=== PATIENT | male | born 1975 | race Caucasian/White ===

== ENCOUNTER 2019-05-16 17:37 | Emergency (ER) | payer MEDICAID ==
[~2019-05-16] VITALS: Ht 175.3 cm; Wt 80.0 kg
[~2019-05-16 17:37] MED LIST: ONDA4TAB14 PO; SULF15DR19 RIGHT EYE
[2019-05-16 17:39] VITALS: Ht 175.3 cm; Wt 80.0 kg
[2019-05-16] MEDS ORDERED: ONDANSETRON 4 MG INJ IV STA (18:13)
[2019-05-16] MEDS ORDERED: SOD CHLORIDE 0.9% 1,000 ML IV STA (18:13)
--- NOTE | 2019-05-16 18:19 | ERD ---
ER Documentation Chief Complaint Chief Complaint AP SINCE LAST NIGHT HPI 43-year-old male presenting with 2 days of nausea, vomiting, diarrhea and abdominal cramping. Denies any fevers or chills. No recent traveling, antibiotics. No sick contacts. Had a cholecystectomy roughly 10 years ago. Does not take any medications. Denies any blood in vomit or diarrhea. No urinary symptoms, no respiratory symptoms. ROS All systems reviewed and are negative except as per history of present illness. Allergies Allergies: Coded Allergies: No Known Allergies (Verified Allergy, Unknown, 05/16/19) PMhx/Soc Surgical history cholecystectomy Medical and Surgical Hx: pt denies Medical Hx Physical Exam Vitals Vital Signs Date Temp Pulse Resp B/P (MAP) Pulse Ox O2 O2 Flow FiO2 Time Delivery Rate 05/16/19 98.0 82 18 122/59 99 17:39 (80) Physical Exam Const: No acute distress Head: Atraumatic Eyes: Normal Conjunctiva ENT: Normal External Ears, Nose and Mouth. Neck: Full range of motion. No meningismus. Resp: Clear to auscultation bilaterally Cardio: Regular rate and rhythm, no murmurs Abd: Soft, non tender, non distended. Normal bowel sounds Skin: No petechiae or rashes Back: No midline or flank tenderness Ext: No cyanosis, or edema Neur: Awake and alert Psych: Normal Mood and Affect Result Diagram: 05/16/19 1830 05/16/19 1830 Results 24 hrs Laboratory Tests Test 05/16/19 18:30 White Blood Count 8.5 10^3/ul Red Blood Count 5.02 10^6/ul Hemoglobin 14.6 g/dl Hematocrit 43.4 % Mean Corpuscular Volume 86.5 fl Mean Corpuscular Hemoglobin 29.1 pg Mean Corpuscular Hemoglobin Concent 33.6 g/dl Red Cell Distribution Width 13.1 % Platelet Count 355 10^3/UL Mean Platelet Volume 10.0 fl Immature Granulocytes % 0.400 % Neutrophils % 67.4 % Lymphocytes % 20.0 % Monocytes % 7.1 % Eosinophils % 4.5 % Basophils % 0.6 % Nucleated Red Blood Cells % 0.0 /100WBC Immature Granulocytes # 0.030 10^3/ul Neutrophils # 5.7 10^3/ul Lymphocytes # 1.7 10^3/ul Monocytes # 0.6 10^3/ul Eosinophils # 0.4 10^3/ul Basophils # 0.1 10^3/ul Nucleated Red Blood Cells # 0.0 10^3/ul Sodium Level 143 mmol/L Potassium Level 3.9 mmol/L Chloride Level 110 mmol/L Carbon Dioxide Level 26 mmol/L Anion Gap 7 Blood Urea Nitrogen 14 mg/dl Creatinine 0.74 mg/dl Est Glomerular Filtrat Rate mL/min > 60 mL/min Glucose Level 110 mg/dl Calcium Level 9.0 mg/dl Total Bilirubin 0.3 mg/dl Direct Bilirubin 0.00 mg/dl Indirect Bilirubin 0.3 mg/dl Aspartate Amino Transf (AST/SGOT) 22 IU/L Alanine Aminotransferase (ALT/SGPT) 25 IU/L Alkaline Phosphatase 89 IU/L Total Protein 7.0 g/dl Albumin 4.1 g/dl Globulin 2.90 g/dl Albumin/Globulin Ratio 1.41 Lipase 97 U/L Current Medications Medications Dose Sig/Gilberto Start Time Status Last (Trade) Ordered Route PRN Stop Time Admin Dose Reason Admin Sodium 1,000 ml @ Q1H STAT 05/16/19 DC 05/16/19 Chloride 1,000 mls/hr IV 18:13 05/16/19 18:44 19:12 Ondansetron 4 mg ONCE STAT 05/16/19 DC 05/16/19 HCl (Zofran IV 18:13 05/16/19 18:44 Inj) 18:15 Atropine 0.4 mg ONCE ONCE 05/16/19 DC Sulfate IV 18:30 05/16/19 (Atropine) 18:31 Atropine 0.4 mg ONCE IV 05/16/19 05/16/19 Sulfate 19:00 05/16/19 19:05 (Atropine 23:00 (Syringe)) Procedures/MDM Patient presents with abdominal pain, nausea and vomiting and diarrhea, has flatus afebrile Patient is well appearing. Non acute abdominal exam. Low suspicion for AAA. Low suspicion for mesenteric ischemia given pain not out of proportion to exam, and no major risk factors Patient remains PO tolerant. Serial abdominal exam without increase in abdominal pain. Given exam and history, low suspicion for acute abdominal process, such as acute cholecystitis, pancreatitis, perforated viscus, atypical appendicitis or torsion. Extensive conversation about return precautions and need for follow-up. I feel the patient is stable for discharge at this time. I have discussed results, examination findings, disposition, and the treatment plan with the patient (and family present) prior to discharge. Indications for emergent reevaluation and side effects of medications were discussed and any questions were answered. Patient verbalized understanding and agreement with the treatment plan. Departure Diagnosis: Primary Impression: Abdominal pain Abdominal location: generalized Qualified Codes: R10.84 - Generalized a bdominal pain Condition: Stable JACINTA العلي MD May 16, 2019 18:19
[2019-05-16] MEDS ORDERED: ATROPINE 0.4 MG INJ IV ONE (18:30)
[2019-05-16] MEDS ORDERED: ATROPINE 1 MG/10 ML SYRINGE IV SCH (19:00)
[2019-05-16 19:30] VITALS: BP 106/69; PULSE 84; RESP 18
== END 2019-05-17 01:00 | disposition home or self-care (01) ==
LOC: E/R 17:37
DX: R10.84 Generalized abdominal pain (principal); R11.2 Nausea with vomiting, unspecified
CPT/HCPCS: 36415; 80053; 83690; 85025; 96374; 96375; J0461; J2405; J7030; Z7502; Z7610

== ENCOUNTER 2019-06-02 12:23 | Emergency (ER) | payer MEDICAID ==
[~2019-06-02] VITALS: Ht 175.3 cm; Wt 91.3 kg
[2019-06-02 13:05] VITALS: BP 113/61; PULSE 94; RESP 17; Ht 175.3 cm; Wt 91.3 kg
== END 2019-06-02 13:28 | disposition home or self-care (01) ==
LOC: E/R 12:23
DX: H10.9 Unspecified conjunctivitis (principal); Z87.891 Personal history of nicotine dependence
CPT/HCPCS: 99283

== ENCOUNTER 2019-06-22 01:29 | Emergency (ER) | payer MEDICAID ==
[~2019-06-22] VITALS: Ht 175.3 cm; Wt 90.1 kg
[~2019-06-22 01:29] MED LIST changes: +LORA-441 PO
[2019-06-22 01:34] VITALS: BP 150/88; PULSE 92; RESP 19; Ht 175.3 cm; Wt 90.1 kg
[2019-06-22] MEDS ORDERED: LORAZEPAM 1 MG TAB PO ONE (02:00)
== END 2019-06-22 02:50 | disposition home or self-care (01) ==
LOC: FTE 01:29
DX: F41.9 Anxiety disorder, unspecified (principal); R06.02 Shortness of breath; F17.210 Nicotine dependence, cigarettes, uncomplicated
CPT/HCPCS: Z7502; Z7610; 99283